=== PATIENT | female | born 1980 | race Caucasian/White ===

== ENCOUNTER 2019-02-08 08:27 | Day surgery (SDC) | payer OTHER ==
[~2019-02-08] VITALS: Ht 162.6 cm; Wt 63.6 kg
[2019-02-08] MEDS ORDERED: NS 1,000 ML IV ONE (09:15)
[2019-02-08 09:30] LABS: HEMATOCRIT 36.6 % (36.0-47.0); HEMOGLOBIN 12.2 g/dl (12.0-15.5)
--- NOTE | 2019-02-08 10:59 | REP ---
PELVIC ULTRASOUND: Real-time sonographic evaluation of the pelvis performed utilizing transabdominal technique. The urinary bladder is collapsed. The uterus measures 15.5 x 6.9 x 7.2 cm. It is retroflexed. Endometrial echo complex is markedly thickened and heterogeneous likely representing retained produces of conception and hemorrhage. No intrauterine fetus is visualized. The ovaries are not visualized. There is no gross adnexal mass or free fluid. Electronically Signed by Oscar Ferreira MD 02/08/2019 04:20 P
[2019-02-08] MEDS ORDERED: LR 1,000 ML IV SCH ×3 (12:15→19:15)
[2019-02-08] MEDS ORDERED: DOXYCYCLINE HYCLATE 100 MG in D5W MINI-BAG PLUS 100 ML IV ONE (12:15)
[2019-02-08] MEDS ORDERED: ONDANSETRON 4MG/2ML VIAL (J2405) IV ONE (13:00)
[2019-02-08] MEDS ORDERED: MORPHINE 4 MG/ML 1ML VIAL/SYRINGE (J2270) IV ONE (13:00)
[2019-02-08 13:24] LABS: HEMATOCRIT 30.3 % (36.0-47.0); HEMOGLOBIN 10.3 g/dl (12.0-15.5)
[2019-02-08] MEDS ORDERED: PROPOFOL 200 MG/20 ML VIAL As Ordered ONE (14:59)
[2019-02-08] MEDS ORDERED: dexameTHASONE 4 MG/ML 1ML VIAL (J1100) As Ordered ONE (14:59)
[2019-02-08] MEDS ORDERED: ONDANSETRON 4MG/2ML VIAL (J2405) As Ordered ONE (14:59)
[2019-02-08] MEDS ORDERED: KETOROLAC 60 MG/2 ML VIAL (J1885) As Ordered ONE (14:59)
[2019-02-08] MEDS ORDERED: LIDOCAINE 2% INJ 100 MG/5 ML SDV (FOR ANES.) As Ordered ONE (15:01)
[2019-02-08] MEDS ORDERED: fentaNYL 100 MCG/2 ML INJECTION (J3010) As Ordered ONE (15:02)
[2019-02-08] MEDS ORDERED: MIDAZOLAM INJ 2 MG/2 ML VIAL (J2250) As Ordered ONE (15:02)
[2019-02-08] MEDS ORDERED: DOXYCYCLINE HYCLATE 100 MG/10 ML VIAL As Ordered ONE (17:39)
[2019-02-08] MEDS ORDERED: PERCOCET 5MG/325MG TAB PO PRN (19:00)
[2019-02-08] MEDS ORDERED: fentaNYL 100 MCG/2 ML INJECTION (J3010) IV PRN (19:00)
[2019-02-08] MEDS ORDERED: MEPERIDINE INJ 25 MG/ML VIAL (J2175) IV PRN (19:00)
[2019-02-08] MEDS ORDERED: METOCLOPRAMIDE INJ 10MG/2ML VIAL (J2765) IV PRN (19:00)
[2019-02-08] MEDS ORDERED: ONDANSETRON 4MG/2ML VIAL (J2405) IV PRN (19:00)
[2019-02-08] MEDS ORDERED: DOXYCYCLINE HYCLATE 100 MG TAB PO ONE (19:15)
[2019-02-08 20:45] VITALS: BP 102/57
--- NOTE | 2019-02-10 16:33 | RO ---
DATE OF PROCEDURE: 02/08/2019 PREOPERATIVE DIAGNOSES: 1. Retained products of conception. 2. 15-week spontaneous miscarriage. POSTOPERATIVE DIAGNOSES: 1. Retained products of conception. 2. 15-week spontaneous miscarriage. PROCEDURE PERFORMED: Suction dilation and curettage (D and C)/removal of retained products of conception. INTRAOPERATIVE FINDINGS Retained placenta removed from the lower uterine segment and internal os and the uterine fundus. SURGEON: Desean Armstrong DO GYM SUPERVISOR: None. ANESTHESIA: General via laryngeal mask airway (LMA). SPECIMENS TO PATHOLOGY: Retained products of conception/placenta. ESTIMATED BLOOD LOSS: 500 mL intraoperatively. FLUIDS REPLACED: 500 mL of lactated Ringer's. DRAINS: In and out catheter. 100 mL urine output. COMPLICATIONS: None. PREOPERATIVE ANTIBIOTICS: Doxycycline 100 mg IV times one. Postoperative bedside transvaginal ultrasound at the conclusion of the case revealed an endometrial stripe that was homogeneous, thin and measuring 0.5 cm. INDICATION: The patient is a 38-year-old G3, P2-0-1-2 diagnosed this morning with a 15-week miscarriage. She already passed the fetus outside of the hospital and brought this fetus for evaluation. She has not passed the placenta upon her presentation to the hospital. The ultrasound revealed a thick endometrial cavity suggestive of retained products of conception/placenta. She was therefore counseled and consented on suction D and C/removal of the placenta/products of conception prior to leaving the hospital. She agreed to this procedure, to be performed under general anesthesia. DESCRIPTION OF PROCEDURE The patient was counseled and consented on risks, benefits, indications and alternatives of the procedure. Informed consent was obtained. She was taken to the operating room with IV running and placed on operating table in dorsal supine position. General anesthesia was administered and airway secured without any difficulty. She was placed in the high lithotomy position. She was prepared and draped in a normal sterile fashion. A time-out was performed per protocol. The bladder was drained with in-and-out sterile catheter. A sterile speculum was placed with good visualization of the cervix. A large amount of blood and blood clot were noted in the vaginal vault. Ring forceps were used to grasp the anterior lip of the cervix. After this was performed, another set of ring forceps were used to grasp the placenta and remove these products of conception. The size #12 Vacurette was placed transcervically into the intrauterine cavity to the level of the fundus. Suction was applied and tissue was removed. The Vacurette was activated until there was minimal tissue and blood return. The Vacurette was removed. A sharp curettage was performed throughout the cavity. No uterine perforation was evident. The cavity was noted to be clear with tactile evaluation with the curette. A gritty texture was noted throughout the cavity indicating no further retained products of conception. The Vacurette was placed for one additional time with minimal tissue and blood return. Minimal bleeding from the cervical os was noted. Transvaginal ultrasound was performed with the findings noted above. Transvaginal ultrasound did indicate that all products had been removed successfully and minimal bleeding from the os was noted. All instruments were removed from the vagina. The anterior lip of the cervix was noted to be hemostatic after removal of the ring forceps. All instruments were removed and sponge, instrument counts were correct. The patient tolerated the entire procedure well. She was transferred to the PACU in good and stable condition. MISTY
== END 2019-02-08 21:00 | disposition home or self-care (01) ==
LOC: M ED 08:27 → M SDC 11:00
PROVIDERS: ATTEND Obstetrics & Gynecology
DX: O02.1 Missed abortion (principal)
CPT/HCPCS: 59820; 76856; 85014; 85018; 86850; 86900; 86901; 88305; 96360; 96361; 99285; J1100; J1885; J2250; J2405; J3010